=== PATIENT | male | born 2005 | race Caucasian/White ===

== ENCOUNTER 2023-09-03 14:59 | Inpatient (IN) | payer BC ==
[~2023-09-03] VITALS: Ht 175.3 cm; Wt 68.0 kg
[2023-09-03 16:37] LABS: Basophils # (auto) 0 10 ^3/uL (0-0.2); Basophils % (auto) 0.2 % (0.0-2.0); Eosinophils # (auto) 0.1 10 ^3/uL (0-0.8); Eosinophils % (auto) 0.7 % (0.0-7.0)
[2023-09-03 16:39] LABS: Lymphocytes # (auto) 2.1 10 ^3/uL (0.4-5.4); Lymphocytes % (auto) 19.9 % (10.0-50.0); Mean Corpuscular Hemoglobin 31.9 pg (28.0-32.0); Mean Corpuscular Hgb Conc. 34.5 g/dL (32.0-36.0); Mean Corpuscular Volume 92.4 fL (80.0-100.0); Monocytes # (auto) 0.8 10 ^3/uL (0-1.3); Monocytes % (auto) 7.3 % (0.0-12.0); Neutrophils # (auto) 7.7 10 ^3/uL (1.6-8.6); Neutrophils % (auto) 71.9 % (37.0-80.0); Nucleated Red Blood Cells % 0.1 %; Red Blood Cells 5.95 10^6/uL (4.5-5.90); Red Cell Distribution Width 13.2 % (11.8-14.3); White Blood Cell 10.7 10^3/uL (4.4-10.8)
[2023-09-03 17:00] LABS: Alanine Aminotransferase 73 U/L (7-40); Alkaline Phosphatase 114 U/L (46-116); Anion Gap 11 (5-15); Calcium 10.8 mg/dL (8.7-10.4); Carbon Dioxide 27 mmol/L (20-30); Chloride 102 mmol/L (98-107); Glucose 104 mg/dL (74-106); Potassium 4.9 mmol/L (3.5-5.1); Sodium 140 mmol/L (136-145)
[2023-09-03 17:01] LABS: Albumin 5.5 g/dL (3.2-4.8); Aspartate Aminotransferase 28 U/L (13-40); BUN/Creatinine Ratio 11.5 (10.0-20.0); Bilirubin, Total 0.5 mg/dL (0.2-1.0); Blood Urea Nitrogen 10 mg/dL (9-23)
[2023-09-03 18:16] LABS: Urine Bacteria None Seen /hpf (None Seen)
[2023-09-03 19:01] LABS: Urine Amorphous Crystal FEW /hpf (None Seen); Urine Blood Negative /uL (Negative); Urine Clarity Turbid (Clear); Urine Color Yellow (Yellow); Urine Protein, UAD Negative (Negative); Urine Urobilinogen Normal (Negative); Urine WBC 6 /hpf (0 - 3)
[2023-09-04] VITALS (12 sets, daily range): BP systolic 106–136; BP diastolic 61–85; PULSE 50–136; RESP 16–21; TEMP 97.3–100; O2SAT 90–97
[2023-09-04] MEDS ORDERED: DOCUSATE SOD 100 MG CAP PO PRN (00:15)
[2023-09-04] MEDS ORDERED: MORPHINE SULFATE INJ 2 MG/ml SYRG IV PRN (00:15)
[2023-09-04] MEDS ORDERED: ACETAMINOPHEN 325 MG TAB PO PRN (00:15)
[2023-09-04] MEDS ORDERED: HYDROcodone-ACET 5/325MG TAB PO PRN (00:15)
[2023-09-04] MEDS ORDERED: ONDANSETRON HCL 4 MG/2 ML VIAL IV PRN (00:15)
[2023-09-04] MEDS ORDERED: NITROGLYCERIN 0.4 MG SL TAB SL PRN (00:15)
[2023-09-04] MEDS ORDERED: CLOB10TA GT (03:20)
[2023-09-04] MEDS ORDERED: LEVE250T18 GT (03:20)
[2023-09-04] MEDS ORDERED: BACL10TA GT (03:20)
[2023-09-04] MEDS ORDERED: POLY17PO5 GT (03:20)
[2023-09-04] MEDS ORDERED: IBUP-2008 GT (03:20)
[2023-09-04] MEDS ORDERED: ALBU1NEB5 IN (03:20)
[2023-09-04] MEDS ORDERED: ACET-1753 GT (03:20)
[2023-09-04] MEDS: SODIUM CHLORIDE 0.9% 1,000 ML IV SCH (03:42)
[2023-09-04] MEDS ORDERED: LORazepam 2MG/ML-1ML VIAL IV PRN ×2 (07:00→12:15)
[2023-09-04 08:38] LABS: Basophils # (auto) 0 10 ^3/uL (0-0.2); Basophils % (auto) 0.2 % (0.0-2.0); Eosinophils # (auto) 0 10 ^3/uL (0-0.8); Eosinophils % (auto) 0.2 % (0.0-7.0); Hematocrit 51.7 % (41.0-53.0); Hemoglobin 17.6 g/dL (13.5-17.5); Lymphocytes # (auto) 2.8 10 ^3/uL (0.4-5.4); Lymphocytes % (auto) 24.8 % (10.0-50.0); Mean Corpuscular Hemoglobin 31.4 pg (28.0-32.0); Mean Corpuscular Hgb Conc. 34.2 g/dL (32.0-36.0); Mean Corpuscular Volume 91.9 fL (80.0-100.0); Monocytes # (auto) 1.2 10 ^3/uL (0-1.3); Monocytes % (auto) 10.4 % (0.0-12.0); Neutrophils # (auto) 7.3 10 ^3/uL (1.6-8.6); Neutrophils % (auto) 64.4 % (37.0-80.0); Nucleated Red Blood Cells % 0.3 %; Red Blood Cells 5.62 10^6/uL (4.5-5.90); Red Cell Distribution Width 13.2 % (11.8-14.3); White Blood Cell 11.4 10^3/uL (4.4-10.8)
[2023-09-04 08:53] LABS: Alanine Aminotransferase 59 U/L (7-40); Alkaline Phosphatase 107 U/L (46-116); Anion Gap 10 (5-15); Aspartate Aminotransferase 30 U/L (13-40); BUN/Creatinine Ratio 13.7 (10.0-20.0); Blood Urea Nitrogen 10 mg/dL (9-23); Calcium 9.8 mg/dL (8.5-10.1); Carbon Dioxide 26 mmol/L (20-30); Chloride 104 mmol/L (98-107); Glucose 94 mg/dL (74-106); Potassium 3.9 mmol/L (3.5-5.1); Sodium 140 mmol/L (136-145)
[2023-09-04 08:54] LABS: Albumin 4.9 g/dL (3.2-4.8); Bilirubin, Total 0.8 mg/dL (0.2-1.0); Total Protein 8.3 g/dL (5.7-8.2)
[2023-09-04] MEDS: levETIRAcetam 500 mg/100ml 100 ML IV SCH (10:43)
[2023-09-04] MEDS: FAMOTIDINE (10MG/ML) 2ML VL IV SCH (10:44)
[2023-09-04] MEDS ORDERED: POLYETHYLENE GLYCOL 17 GM PWDR PO ONE (11:45)
[2023-09-04] MEDS ORDERED: Ensure HIGH Protein Vanilla 8oz Bottle PO SCH (12:00)
[2023-09-04] MEDS ORDERED: LACTULOSE 20Gm/30ML SOLN PO ONE (12:15)
[2023-09-04] MEDS ORDERED: BACLOFEN 10 MG TAB PO SCH (14:00)
[2023-09-04] MEDS: POLYETHYLENE GLYCOL 17 GM PWDR GT ONE (15:17)
[2023-09-04] MEDS: BACLOFEN 10 MG TAB GT SCH (15:17)
[2023-09-04] MEDS: LACTULOSE 20Gm/30ML SOLN GT ONE (15:17)
[2023-09-04] MEDS: levETIRAcetam 500 mg/100ml 100 ML IV ONE (15:22)
[2023-09-04] MEDS: Ensure HIGH Protein Vanilla 8oz Bottle GT SCH (18:00)
[2023-09-04] MEDS: SULFAMETH W/TRIMETHOPRIM(200/40MG) 5ML SUSP GT SCH (22:00)
[2023-09-04] MEDS: DOCUSATE ORAL LIQUID 100 MG/10 ML UD GT SCH (22:31)
[2023-09-04] MEDS: BACLOFEN 20MG TABLET GT SCH (22:40)
[2023-09-04] MEDS: CLOBAZAM 10 MG GT SCH (22:41)
[2023-09-04] MEDS: levETIRAcetam 1000 mg/100ml 100 ML IV SCH (22:47)
[2023-09-04] MEDS: SULFAMETHOX W/TRIMETH(800/160MG) DS TAB PO ONE (23:12)
[2023-09-05] VITALS (9 sets, daily range): BP systolic 101–109; BP diastolic 58–67; PULSE 54–106; RESP 17–20; TEMP 97.3–98.3; O2SAT 93–96
[2023-09-05 06:36] LABS: Basophils # (auto) 0 10 ^3/uL (0-0.2); Basophils % (auto) 0.5 % (0.0-2.0); Eosinophils # (auto) 0.1 10 ^3/uL (0-0.8); Eosinophils % (auto) 1.2 % (0.0-7.0); Hematocrit 50.4 % (41.0-53.0); Hemoglobin 16.9 g/dL (13.5-17.5); Lymphocytes # (auto) 3.8 10 ^3/uL (0.4-5.4); Lymphocytes % (auto) 40.6 % (10.0-50.0); Mean Corpuscular Hemoglobin 31.6 pg (28.0-32.0); Mean Corpuscular Hgb Conc. 33.6 g/dL (32.0-36.0); Mean Corpuscular Volume 94.2 fL (80.0-100.0); Monocytes # (auto) 0.9 10 ^3/uL (0-1.3); Monocytes % (auto) 9.9 % (0.0-12.0); Neutrophils # (auto) 4.4 10 ^3/uL (1.6-8.6); Neutrophils % (auto) 47.8 % (37.0-80.0); Nucleated Red Blood Cells % 0.4 %; Red Blood Cells 5.34 10^6/uL (4.5-5.90); Red Cell Distribution Width 13.4 % (11.8-14.3); White Blood Cell 9.3 10^3/uL (4.4-10.8)
[2023-09-05 06:50] LABS: Alanine Aminotransferase 70 U/L (7-40); Albumin 4.7 g/dL (3.2-4.8); Alkaline Phosphatase 100 U/L (46-116); Anion Gap 9 (5-15); Aspartate Aminotransferase 30 U/L (13-40); BUN/Creatinine Ratio 17.2 (10.0-20.0); Blood Urea Nitrogen 11 mg/dL (9-23); Calcium 9.8 mg/dL (8.7-10.4); Carbon Dioxide 26 mmol/L (20-30); Chloride 106 mmol/L (98-107); Glucose 89 mg/dL (74-106); Potassium 4.2 mmol/L (3.5-5.1); Sodium 141 mmol/L (136-145); Total Protein 7.9 g/dL (5.7-8.2)
[2023-09-05] MEDS: POLYETHYLENE GLYCOL 17 GM PWDR PO SCH (10:32)
[2023-09-05] MEDS: LACTULOSE 20Gm/30ML SOLN PO ONE (15:00)
[2023-09-05] MEDS: FLEET ENEMA(ADULT) 135 ML PR ONE (15:54)
[2023-09-05] MEDS: FREE WATER GT ONE (15:55)
[2023-09-05] MEDS: MILK OF MAGNESIA 30ML SUSP PO ONE (15:55)
[2023-09-05] MEDS: FLEET MINERAL OIL ENEMA 133 ML PR ONE (18:12)
[2023-09-05] MEDS: FREE WATER GT SCH (20:00)
[2023-09-06 05:00] VITALS: BP 100/50; PULSE 67; RESP 18; TEMP 97.8; O2SAT 98
[2023-09-06 06:59] VITALS: O2SAT 98
[2023-09-06 08:00] VITALS: PULSE 62; RESP 18; O2SAT 93
[2023-09-06 09:22] VITALS: BP 104/63; PULSE 62; RESP 18; TEMP 97.3; O2SAT 95
[2023-09-06 13:00] VITALS: BP 97/54; PULSE 97; RESP 16; TEMP 98.7; O2SAT 98
[2023-09-06 16:21] VITALS: BP 109/61; PULSE 93; RESP 16; TEMP 98.6; O2SAT 98
== END 2023-09-06 17:30 | disposition home health service (06) | DRG 700 ==
LOC: ER 14:59 → OVERFLOW 09-04 00:36 → EAST 09-04 02:05
PROVIDERS: ADMIT Nurse Practitioner Family; ATTEND Internal Medicine Geriatric Medicine
DX: N13.9 Obstructive and reflux uropathy, unspecified (principal); N31.9 Neuromuscular dysfunction of bladder, unspecified; G80.9 Cerebral palsy, unspecified; R56.9 Unspecified convulsions; Z96.642 Presence of left artificial hip joint; K59.00 Constipation, unspecified; K80.20 Calculus of gallbladder without cholecystitis without obstruction; I10 Essential (primary) hypertension; E11.9 Type 2 diabetes mellitus without complications; M62.462 Contracture of muscle, left lower leg; M62.461 Contracture of muscle, right lower leg
CPT/HCPCS: 36415; 74176; 80053; 81001; 85025; 96365; 96375; G0378; J3490